=== PATIENT | male | born 1990 ===

== ENCOUNTER 2018-02-07 22:59 | Emergency (ER) | payer SELFPAY ==
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
[2018-02-08 00:55] LABS: URINE AMPHETAMINES SCREEN NEGATIVE; URINE BARBITURATES SCREEN NEGATIVE; URINE BENZODIAZEPINES SCREEN NEGATIVE; URINE COCAINE SCREEN NEGATIVE; URINE MARIJUANA (THC) SCREEN NEGATIVE; URINE METHADONE SCREEN NEGATIVE; URINE PHENCYCLIDINE SCREEN NEGATIVE
[2018-02-08] MEDS: RINGERS SOLUTION,LACTATED 1,000 ML IV PRN ×2 (00:59→02:08)
[2018-02-08] MEDS ORDERED: DEXTROSE 5%-1/2 NORMAL SALINE 1,000 ML IV ONE (04:09)
[2018-02-08 04:11] VITALS: BP 94/41
== END 2018-02-08 07:28 | disposition home or self-care (01) ==
LOC: ER 22:59
DX: F10.920 Alcohol use, unspecified with intoxication, uncomplicated (principal); F17.210 Nicotine dependence, cigarettes, uncomplicated
CPT/HCPCS: 99284; 96360; 96361; 36415; 82962; 80307 ×2; J7120